=== PATIENT | male | born 2000 | race American Indian/Alaskan Native ===

== ENCOUNTER 2019-06-27 21:00 | Emergency (ER) | payer SELFPAY ==
--- NOTE | 2019-06-27 22:03 | Emergency Department Report ---
Blank Doc - Documentation Documentation: 18-year-old male that presents with bilatearl wrist pain s/p fall. This initial assessment/diagnostic orders/clinical plan/treatment(s) is/are subject to change based on patient's health status, clinical progression and re- assessment by fellow clinical providers in the ED. Further treatment and workup at subsequent clinical providers discretion. Patient/guardians urged not to elope from the ED as their condition may be serious if not clinically assessed and managed. Initial orders include: 1- Patient sent to [facility] for further evaluation and treatment 2- xrays
--- NOTE | 2019-06-27 22:47 | XRay Report ---
LEFT WRIST 3 VIEWS INDICATION / CLINICAL INFORMATION: wrist pain s/p fall COMPARISON: None available. FINDINGS: BONES / JOINT(S): There is a fracture of the scaphoid bone. No other fractures are seen. No dislocati on is seen. No significant arthritis. SOFT TISSUES: No significant abnormality. ADDITIONAL FINDINGS: None. RIGHT WRIST 3 VIEWS INDICATION / CLINICAL INFORMATION: wrist pain s/p fall COMPARISON: None available. FINDINGS: BONES / JOINT(S): There is a fracture of the right triquetrum. No other fractures are seen. No disloc ation is seen No significant arthritis. SOFT TISSUES: No significant abnormality. ADDITIONAL FINDINGS: None. IMPRESSION: There is a fracture of the LEFT scaphoid bone There is a fracture of the RIGHT triquetrum Signer Name: Chino Judd MD Signed: 06/27/2019 10:42 PM Workstation Name: [id number]
[2019-06-27] MEDS ORDERED: IBUPROFEN 600 MG TAB PO ONE (23:34)
--- NOTE | 2019-06-27 23:42 | Emergency Department Report ---
ED Upper Extremity Inj HPI - General Chief Complaint: Extremity Injury, Upper Stated Complaint: FELL AND HURT BOTH WRIST Time Seen by Provider: 06/27/19 22:01 Source: patient Mode of arrival: Ambulatory Limitations: No Limitations - History of Present Illness Initial Comments: 18-year-old male presents to the emergency room for bilateral wrist pain. Panchito mac reports that he felt approximately hour prior to arrival in her both wrists. Patient has no past medical history currently takes no medications on a daily basis and has no known drug allergies MD Complaint: Injury to:: left, right, wrist -: During the night Other Extremity Injury: Wrist: Left, Right (fell ) Other Injuries: none Severity scale (0 -10): 8 Improves With: immobilization Worsens With: movement of extremity Context: fall, direct blow, skateboard accident Associated Symptoms: denies other symptoms - Related Data Previous Rx's Medication Instructions Recorded Last Taken Type HYDROcodone/APAP 5-325 [[place] 1 each PO Q6HR PRN #12 tablet 06/27/19 Unknown Rx 5/325] Ibuprofen [Motrin 600 MG tab] 600 mg PO Q8H PRN #30 tablet 06/27/19 Unknown Rx Allergies Allergy/AdvReac Type Severity Reaction Status Date / Time No Known Allergies Allergy Unverified 06/27/19 22:03 ED Review of Systems ROS: Stated complaint: FELL AND HURT BOTH WRIST Other details as noted in HPI Comment: All other systems reviewed and negative ED Past Medical Hx - Past Medical History Previous Medical History?: No - Surgical History Past Surgical History?: No - Social History Smoking Status: Never Smoker Substance Use Type: None - Medications Home Medications: Home Medications Medication Instructions Recorded Confirmed Last Taken Type HYDROcodone/APAP 5-325 [[place] 1 each PO Q6HR PRN #12 tablet 06/27/19 Unknown Rx 5/325] Ibuprofen [Motrin 600 MG tab] 600 mg PO Q8H PRN #30 tablet 06/27/19 Unknown Rx ED Physical Exam - General Limitations: No Limitations General appearance: alert, in no apparent distress - Head Head exam: Present: atraumatic, normocephalic - Eye Eye exam: Present: normal appearance - ENT ENT exam: Present: mucous membranes moist - Expanded Upper Extremity Exam Right General: Present: normal inspection Shoulder Exam: Present: normal inspection, full ROM Upper Arm exam: Present: normal inspection, full ROM Elbow exam: Present: normal inspection, full ROM Forearm Wrist exam: Present: tenderness, swelling. Absent: full ROM Hand Wrist exam: Present: tenderness, swelling Vascular: Present: normal capillary refill Left Shoulder Exam: Present: normal inspection Upper Arm exam: Present: normal inspection, full ROM Elbow exam: Present: normal inspection, full ROM Forearm Wrist exam: Present: tenderness. Absent: swelling Hand Wrist exam: Present: tenderness, swelling. Absent: full ROM Vascular: Present: vascular compromise - Neurological Exam Neurological exam: Present: alert, oriented X3 - Psychiatric Psychiatric exam: Present: normal affect, normal mood - Skin Skin exam: Present: warm, dry, intact, normal color. Absent: rash ED Course Vital Signs 06/27/19 21:12 Temperature 98.6 F Pulse Rate 62 Respiratory 16 Rate Blood Pressure 130/87 O2 Sat by Pulse 99 Oximetry ED Medical Decision Making - Radiology Data Radiology results: report reviewed Ordering Physician: AJ DIAZ NP Date of Service: 06/27/19 Procedure(s): XR wrist BILAT 3+V Accession Number(s): [id number] cc: AJ DIAZ NP Fluoro Time In Minutes: LEFT WRIST 3 VIEWS INDICATION / CLINICAL INFORMATION: wrist pain s/p fall COMPARISON: None available. FINDINGS: BONES / JOINT(S): There is a fracture of the scaphoid bone. No other fractures are seen. No dislocation is seen. No significant arthritis. SOFT TISSUES: No significant abnormality. ADDITIONAL FINDINGS: None. RIGHT WRIST 3 VIEWS INDICATION / CLINICAL INFORMATION: wrist pain s/p fall COMPARISON: None available. FINDINGS: BONES / JOINT(S): There is a fracture of the right triquetrum. No other fractures are seen. No dislocation is seen No significant arthritis. SOFT TISSUES: No significant abnormality. ADDITIONAL FINDINGS: None. IMPRESSION: There is a fracture of the LEFT scaphoid bone There is a fracture of the RIGHT triquetrum Signer Name: Chino Judd MD Signed: 06/27/2019 10:42 PM Workstation Name: [id number] Transcribed By: Dictated By: Chino Judd MD Electronically Authenticated By: Chino Judd MD Signed Date/Time: 06/27/192241 DD/ 37 TD/TT: - Medical Decision Making 18-year-old male presents to the emergency room for bilateral wrist pain. Patient reports that he felt approximately hour prior to arrival in her both wrists. Patient has no past medical history currently takes no medications on a daily basis and has no known drug allergies. H and has a fracture to his right wrist. Will place patient in a volar splint ibuprofen and referral to Dr. Solorzano orthopedic provider. Critical care attestation.: If time is entered above; I have spent that time in minutes in the direct care of this critically ill patient, excluding procedure time. ED Disposition Clinical Impression: Triquetral fracture Qualifiers: Encounter type: initial encounter Fracture type: closed Fracture alignment: nondisplaced Laterality: right Qualified Code(s): S62.114A - Nondisplaced fracture of triquetrum [cuneiform] bone, right wrist, initial encounter for closed fracture Disposition: TO HOME OR SELFCARE Is pt being admited?: No Does the pt Need Aspirin: No Condition: Stable Instructions: Wrist Fracture in Adults (ED) Prescriptions: Ibuprofen [Motrin 600 MG tab] 600 mg PO Q8H PRN #30 tablet PRN Reason: Pain HYDROcodone/APAP 5-325 [[place] 5/325] 1 each PO Q6HR PRN #12 tablet PRN Reason: Pain Referrals: PRIMARY CAREMD [Primary Care Provider] - 3-5 Days VIVIAN SOLORZANO MD [Staff Physician] - 3-5 Days Forms: Work/School Release Form(ED)
[2019-06-28 00:21] VITALS: BP 128/72
== END 2019-06-28 00:20 | disposition home or self-care (01) ==
LOC: ED 21:00
DX: S62.111A Displaced fracture of triquetrum [cuneiform] bone, right wrist, initial encounter for closed fracture (principal); Z79.1 Long term (current) use of non-steroidal anti-inflammatories (NSAID); Z79.899 Other long term (current) drug therapy; W19.XXXA Unspecified fall, initial encounter; Y93.89 Activity, other specified; Y92.89 Other specified places as the place of occurrence of the external cause; Y99.8 Other external cause status